=== PATIENT | male | born 1965 | race Native Hawaiian/Other Pacific Islander ===

== ENCOUNTER 2018-07-26 12:41 | Emergency (ER) | payer OTHER ==
[~2018-07-26] VITALS: Ht 185.4 cm; Wt 134.3 kg
[2018-07-26 12:50] VITALS: TEMP 97.8
[2018-07-26 13:42] VITALS: BP 134/72
== END 2018-07-26 13:45 | disposition home or self-care (01) ==
LOC: ED 12:41
DX: S39.012A Strain of muscle, fascia and tendon of lower back, initial encounter (principal); X50.9XXA Other and unspecified overexertion or strenuous movements or postures, initial encounter; Z98.890 Other specified postprocedural states
CPT/HCPCS: 96372; 99282; J1885